=== PATIENT | female | born 1945 | race Caucasian/White ===

== ENCOUNTER → 2018-04-22 15:02 | Outpatient (CLI) | payer MEDICARE, SELFPAY ==
--- NOTE | 2018-04-22 | DI.MG.S_ITS ---
BILATERAL DIGITAL SCREENING MAMMOGRAM 3D/2D WITH CAD: 04/22/2018 CLINICAL: Routine screening. Family history of breast cancer. Comparison is made to exams dated: 02/26/2017 mammogram, 07/20/2015 mammogram, and 12/25/2013 mammogram - [facility]. The tissue of both breasts is heterogeneously dense. This may lower the sensitivity of mammography. Current study was also evaluated with a Computer Aided Detection (CAD) system. There are benign vascular calcifications in both breasts. No significant masses, calcifications, or other findings are seen in either breast. There has been no significant interval change. IMPRESSION: BENIGN There is no mammographic evidence of malignancy. A 1 year screening mammogram is recommended. This exam was interpreted at Station ID: [id number]. NOTE: For mammograms, a report in lay terms will be sent to the patient. Approximately 15% of breast malignancies will not be visualized mammographically. In the management of a palpable breast mass, a negative mammogram must not discourage biopsy of a clinically suspicious lesion. Electronically Signed By: Vipin hardwick/noreen:04/23/2018 03:50:53 letter sent: Normal Exam ACR BI-RADS Category 2: Benign Finding(s) 3342F
== END ==
PROVIDERS: Visit Provider Student in an Organized Health Care Education/Training Program
DX: Z12.31 Encounter for screening mammogram for malignant neoplasm of breast (principal); Z80.3 Family history of malignant neoplasm of breast
CPT/HCPCS: 77063; 77067

== ENCOUNTER 2018-09-01 12:02 | Emergency (ER) | payer MEDICARE, SELFPAY ==
[2018-09-01 12:11] VITALS: BP 158/89; PULSE 63; RESP 16; TEMP 36.6; O2SAT 97
--- NOTE | 2018-09-01 12:19 | DI.RAD.S_ITS ---
PROCEDURE: XR CHEST 1V INDICATIONS: cp TECHNIQUE: One view of the chest was acquired. COMPARISON: None. FINDINGS: Surgical changes and devices: None. Lungs and pleura: No pleural effusions or pneumothorax. Lungs are clear. Mediastinum: Mediastinal contours appear normal. Heart size is enlarged. Bones and chest wall: No suspicious bony lesions. Overlying soft tissues appear unremarkable. IMPRESSION: No acute cardiopulmonary pathology. Dictated by: Ray Damian M.D. on 09/01/2018 at 14:43 Approved by: Ray Damian M.D. on 09/01/2018 at 14:43
[2018-09-01 12:47] LABS: Creatine Kinase 20 U/L (30-135)
[2018-09-01 12:48] LABS: Alanine Aminotransferase 41 IU/L (9-52); Albumin Globulin Ratio 1.4 (1.0-2.8); Alkaline Phosphatase 88 U/L (38-126); Aspartate Aminotransferase 37 IU/L (14-36); BUN Creatinine Ratio 16.7 (6-22); Bilirubin Total 0.3 mg/dL (0.2-1.3); Blood Urea Nitrogen 15 mg/dL (7-17); Calcium 9.3 mg/dL (8.4-10.2); Carbon Dioxide 28 mmol/L (22-32); Chloride 103 mmol/L (98-107); Estimated Glomerular Filt Rate > 60.0 mL/min (>60); Globulin 2.9 g/dL (1.7-4.1); Glucose 100 mg/dL (80-110); HEMOLYSIS < 15 (0-50); Lipase 77 U/L (23-300); Potassium 4.5 mmol/L (3.4-5.1); Sodium 139 mmol/L (137-145); Total Protein 6.9 g/dL (6.3-8.2)
[2018-09-01 12:55] LABS: Add Manual Diff / Slide Review NO; Basophils Percent Auto 0.5 % (0-2); Eosinophils Percent Auto 1.9 % (2-4); Hematocrit 41.3 % (36-46); Hemoglobin 13.7 g/dL (12.0-16.0); Lymphocytes Percent Auto 22.2 % (25-40); Mean Corpuscular HGB Conc 33.2 % (30-36); Mean Corpuscular Hemoglobin 30.8 PG (26-34); Mean Corpuscular Volume 92.7 fL (80-100); Monocytes Percent Auto 8.8 % (3-14); Neutrophils Absolute Auto 5500 /uL (1500-7000); Neutrophils Percent Auto 66.6 % (50-75); Platelet Count 261 X10^3/uL (150-400); Red Blood Cell Count 4.45 X10^6/uL (4.0-5.2); Red Cell Distribution Width 13.9 % (11.6-14.8); White Blood Cell Count 8.2 X10^3/uL (4.5-11.0)
[2018-09-01 13:03] LABS: Troponin I < 0.012 ng/mL (0.01-0.034)
[2018-09-01] MEDS: ASPIRIN 81 MG TAB 324 MG PO (14:00)
[2018-09-01 14:15] VITALS: BP 160/88; PULSE 63; RESP 16; O2SAT 100
[2018-09-01] MEDS: SODIUM CHLORIDE 0.9% 1,000 ML 150 ML IV (14:30)
--- NOTE | 2018-09-01 15:12 | ED.CHESTPAIN ---
HPI - Chest Pain General Chief Complaint: Chest Pain Stated Complaint: LEFT SIDED CHEST PAIN Time Seen by Provider: 09/01/18 14:45 Source: patient and family Mode of arrival: ambulatory Limitations: no limitations History of Present Illness HPI narrative: This is a 72-year-old female comes emergency department complaint of chest pain for the last month. Patient states sort of over the left shoulder anterior chest. Exertion does not seem to worsen it. Movement does not seem to make it particularly worse. Patient has done some upper shoulder exercises recently and she thought this would make it worse and it did not so she came in because she had been contributing the pain to her shoulder. Patient has not had any shortness of breath. She has had dyspnea on exertion. No orthopnea. No swelling in her lower extremities. She has not any fevers, no cold cough or congestion. Patient has not had any long distance travel. She does not have any prior cardiac, pulmonary or emboli history. Patient has a history of normal pressure hydrocephalus and has a OFFICE RENTAL CLERK shunt in place. She states she has not had any complications that drains onto her right side. Patient also had a malignant brain tumor but this was removed and she has not had any further issues. She has not had any rashes or skin changes. No prior trauma or injuries. No car accidents in the last month. Related Data Allergies Allergy/AdvReac Type Severity Reaction Status Date / Time lorazepam [From Ativan] AdvReac Agitated Verified 09/01/18 12:10 Review of Systems Review of Systems All systems reviewed & are unremarkable except as noted in HPI and below Constitutional Denies chills, Reports difficulty sleeping, Denies excessive sweating, Denies fatigue, Denies fever(s), Denies lethargy, Denies night sweats and Denies weakness Cardiovascular Reports chest pain, Reports chest pain at rest, Denies chest pain with activity, Denies diaphoresis, Denies syncope, Denies rapid heart rate, Denies pedal edema, Denies irregular heart rhythm, Denies lightheadedness, Reports radiating jaw, neck or arm pain, Denies palpitations, Denies dyspnea, Denies dyspnea on exertion and Denies orthopnea Respiratory Denies change in phlegm color, Denies chest congestion, Denies cough, Denies hemoptysis, Reports pain on inspiration, Denies pain with cough, Denies dyspnea, Denies dyspnea on exertion and Denies wheezing Gastrointestinal Gastrointestinal: Denies abdominal pain, Denies change in bowel habits, Denies diarrhea, Denies nausea and Denies vomiting Genitourinary Denies urinary frequency, Denies dysuria and Denies urinary urgency Musculoskeletal Reports as per HPI, Denies arthralgias, Denies joint swelling, Denies limited range of motion, Denies numbness, Reports radiating pain into limb, Denies stiffness and Denies tingling Integumentary/Breasts Denies rash Neurologic Denies syncope, Denies numbness, Denies tingling and Denies weakness Endocrine Denies excessive sweating, Denies fatigue and Denies palpitations Allergic/Immunologic Denies wheezing [facility] Medical History Normal pressure hydrocephalus (Chronic) Brain tumor (Resolved) Surgical History S/P OFFICE RENTAL CLERK shunt (Chronic) Social History Smoking Status: Never smoker alcohol intake: current substance use type: does not use Exam Narrative Exam Narrative: GENERAL: Alert and oriented x three, HEENT: Head normocephalic, atraumatic, EOMI, pupils reactive, face symmetric, moist mucous membranes NECK: Supple, full range of motion CARDIOVASCULAR: Regular rate and rhythm without murmurs, rubs or gallops. RESPIRATORY: Breath sounds equal bilaterally, no wheezes rales or rhonchi. ABDOMEN: Soft, nontender. Normoactive bowel sounds all 4 quadrants. No guarding or rebound, rigidity, no mass : No CVA tenderness EXTREMITIES: Normal range of motion, no clubbing or edema. Neurovascularly intact NEUROLOGICAL: Cranial nerves II through XII grossly intact. Moving all extremities SKIN: Warm, dry, no petechiae, no rashes or lesions. Initial Vital Signs Initial Vital Signs: Vital Signs Temperature 97.9 F 09/01/18 12:11 Pulse Rate 63 09/01/18 12:11 Respiratory Rate 16 09/01/18 12:11 Blood Pressure 158/89 H 09/01/18 12:11 Pulse Oximetry 97 09/01/18 12:11 Course Orders Ordered: Discontinued Medications Aspirin (Aspirin Chew) 324 mg PO NOW ONE Stop: 12/31/18 12:20 Last Admin: 09/01/18 14:00 Dose: 324 mg Sodium Chloride (Normal Saline 0.9%) 1,000 mls @ 150 mls/hr IV CONT J LUIS Last Infusion: 09/01/18 15:31 Dose: 150 mls/hr Admin: 09/01/18 14:30 Dose: 150 mls/hr Vital Signs - 8 hr 09/01/18 12:11 09/01/18 14:15 Temperature 97.9 F Pulse Rate 63 63 Respiratory Rate 16 16 Blood Pressure 158/89 H Blood Pressure [Left Arm] 160/88 H Pulse Oximetry 97 100 MDM - Chest Pain Lab Data Attestation: I reviewed the patient's lab results. Result diagrams: 09/01/18 12:20 09/01/18 12:20 Lab Results 09/01/18 09/01/18 Range/Units 12:20 12:20 WBC 8.2 (4.5-11.0) X10^3/uL RBC 4.45 (4.0-5.2) X10^6/uL Hgb 13.7 (12.0-16.0) g/dL Hct 41.3 (36-46) % MCV 92.7 (80-100) fL MCH 30.8 (26-34) PG MCHC 33.2 (30-36) % RDW 13.9 (11.6-14.8) % Plt Count 261 (150-400) X10^3/uL Neut % (Auto) 66.6 (50-75) % Lymph % (Auto) 22.2 L (25-40) % [place] % (Auto) 8.8 (3-14) % Eos % (Auto) 1.9 L (2-4) % Baso % (Auto) 0.5 (0-2) % Neut # (Auto) 5500 (4218-1780) /uL Sodium 139 (137-145) mmol/L Potassium 4.5 (3.4-5.1) mmol/L Chloride 103 (98-107) mmol/L Carbon Dioxide 28 (22-32) mmol/L BUN 15 (7-17) mg/dL Creatinine 0.90 (0.52-1.04) mg/dL Estimated GFR > 60.0 (>60) mL/min BUN/Creatinine Ratio 16.7 (6-22) Glucose 100 (80-110) mg/dL Calcium 9.3 (8.4-10.2) mg/dL Total Bilirubin 0.3 (0.2-1.3) mg/dL AST 37 H (14-36) IU/L ALT 41 (9-52) IU/L Alkaline Phosphatase 88 (38-126) U/L Total Creatine Kinase 20 L (30-135) U/L CK-MB (CK-2) TNP CK-MB (CK-2) Rel Index TNP Troponin I < 0.012 (0.01-0.034) ng/mL Total Protein 6.9 (6.3-8.2) g/dL Albumin 4.0 (3.5-5.0) g/dL Globulin 2.9 (1.7-4.1) g/dL Albumin/Globulin Ratio 1.4 (1.0-2.8) Lipase 77 (23-300) U/L Urine Dip Bedside Urine Glucose Negative Bedside Urine Bilirubin - Negative Bedside Urine Ketone - Negative Urine Specific [place] 1.015 Bedside Urine Occult Blood - Negative Bedside Urine pH 6.0 Bedside Urine Protein - Negative Bedside Urine Urobilinogen - Negative Bedside Urine Nitrite - Negative Bedside Urine Leukocytes - Negative Esterase Imaging Data Chest x-ray: Radiologist's impression: [place] [address] XRay Report Signed Patient: Anne Marie Mcnamara MR#: [id number] : 1945 Acct:[id number] Age/Sex: 72 / F Date of Service: 09/01/18 Loc: ED Accession Number: [id number] Procedure: XR chest 1V Ordering Provider: Zuleima Reynoso D.O. PROCEDURE: XR CHEST 1V INDICATIONS: cp TECHNIQUE: One view of the chest was acquired. COMPARISON: None. FINDINGS: Surgical changes and devices: None. Lungs and pleura: No pleural effusions or pneumothorax. Lungs are clear. Mediastinum: Mediastinal contours appear normal. Heart size is enlarged. Bones and chest wall: No suspicious bony lesions. Overlying soft tissues appear unremarkable. IMPRESSION: No acute cardiopulmonary pathology. Dictated by: Ray Damian M.D. on 09/01/2018 at 14:43 Approved by: Ray Damian M.D. on 09/01/2018 at 14:43 ECG Data Attestation: I personally reviewed and interpreted this ECG as follows: Prior ECG tracings: not available for review Interpretation: Sinus rhythm no ST elevation or depression. Patient is Q-wave in lead 3. No prior EKGs for comparison MDM Narrative Medical decision making narrative: I discussed the patient with findings. We did discuss doing D-dimer versus CT PE protocol for pulmonary embolism although she is not hypoxic, she is not tachycardic, she is 90 hypotension and her symptoms are not really pleuritic in nature. Patient defers at this time. She has had about a month of symptoms I would expect some sort of changes if she was having any significant pulmonary emboli. She does not have any current risk factors. She does not have any current cancer she was retreated remotely for her tumor. We did not find any signs of infection, care coronary artery disease. Or other clear causes. Discussed with patient and plan for follow-up. Discharge Plan Departure Patient Disposition: Home Clinical Impression: Atypical chest pain Discharge Date/Time: 09/01/18 16:01 Interventions: ED Discharge Assessment Last Done: 09/01/18 15:32 Instructions: DI for Atypical Chest Pain Activity Restrictions/Additional Instructions: With your primary care physician in the next week. Call for an appointment tomorrow. You may take Tylenol as needed for pain. General Return Instructions : Return to the Emergency Department for any new or worsening symptoms. Return to the Emergency Department for fevers not controlled by ibuprofen/Tylenol, severe abdominal pain, chest pain, shortness of breath, passing out, persistent vomiting, worrisome rash, or any other new or worsening symptoms. Referrals: Lanny Maguire PA-C [Primary Care Provider] -
[2018-09-01 15:32] VITALS: BP 154/74; PULSE 64; RESP 14; TEMP 36.3; O2SAT 100
--- NOTE | 2018-09-01 15:32 | ED_ITS ---
HPI - Chest Pain General Chief Complaint: Chest Pain Stated Complaint: LEFT SIDED CHEST PAIN Time Seen by Provider: 09/01/18 14:45 Source: patient and family Mode of arrival: ambulatory Limitations: no limitations History of Present Illness HPI narrative: This is a 72-year-old female comes emergency department complaint of chest pain for the last month. Patient states sort of over the left shoulder anterior chest. Exertion does not seem to worsen it. Movement does not seem to make it particularly worse. Patient has done some upper shoulder exercises recently and she thought this would make it worse and it did not so she came in because she had been contributing the pain to her shoulder. Patient has not had any shortness of breath. She has had dyspnea on exertion. No orthopnea. No swelling in her lower extremities. She has not any fevers, no cold cough or congestion. Patient has not had any long distance travel. She does not have any prior cardiac, pulmonary or emboli history. Patient has a history of normal pressure hydrocephalus and has a CAP AND HAT PRODUCTION SUPERVISOR shunt in place. She states she has not had any complications that drains onto her right side. Patient also had a malignant brain tumor but this was removed and she has not had any further issues. She has not had any rashes or skin changes. No prior trauma or injuries. No car accidents in the last month. Related Data Allergies Allergy/AdvReac Type Severity Reaction Status Date / Time lorazepam [From Ativan] AdvReac Agitated Verified 09/01/18 12:10 Review of Systems Review of Systems All systems reviewed & are unremarkable except as noted in HPI and below Constitutional Denies chills, Reports difficulty sleeping, Denies excessive sweating, Denies fatigue, Denies fever(s), Denies lethargy, Denies night sweats and Denies weakness Cardiovascular Reports chest pain, Reports chest pain at rest, Denies chest pain with activity , Denies diaphoresis, Denies syncope, Denies rapid heart rate, Denies pedal edema, Denies irregular heart rhythm, Denies lightheadedness, Reports radiating jaw, neck or arm pain, Denies palpitations, Denies dyspnea, Denies dyspnea on exertion and Denies orthopnea Respiratory Denies change in phlegm color, Denies chest congestion, Denies cough, Denies hemoptysis, Reports pain on inspiration, Denies pain with cough, Denies dyspnea , Denies dyspnea on exertion and Denies wheezing Gastrointestinal Gastrointestinal: Denies abdominal pain, Denies change in bowel habits, Denies diarrhea, Denies nausea and Denies vomiting Genitourinary Denies urinary frequency, Denies dysuria and Denies urinary urgency Musculoskeletal Reports as per HPI, Denies arthralgias, Denies joint swelling, Denies limited range of motion, Denies numbness, Reports radiating pain into limb, Denies stiffness and Denies tingling Integumentary/Breasts Denies rash Neurologic Denies syncope, Denies numbness, Denies tingling and Denies weakness Endocrine Denies excessive sweating, Denies fatigue and Denies palpitations Allergic/Immunologic Denies wheezing [facility] Medical History Normal pressure hydrocephalus (Chronic) Brain tumor (Resolved) Surgical History S/P CAP AND HAT PRODUCTION SUPERVISOR shunt (Chronic) Social History Smoking Status: Never smoker alcohol intake: current substance use type: does not use Exam Narrative Exam Narrative: GENERAL: Alert and oriented x three, HEENT: Head normocephalic, atraumatic, EOMI, pupils reactive, face symmetric, moist mucous membranes NECK: Supple, full range of motion CARDIOVASCULAR: Regular rate and rhythm without murmurs, rubs or gallops. RESPIRATORY: Breath sounds equal bilaterally, no wheezes rales or rhonchi. ABDOMEN: Soft, nontender. Normoactive bowel sounds all 4 quadrants. No guarding or rebound, rigidity, no mass : No CVA tenderness EXTREMITIES: Normal range of motion, no clubbing or edema. Neurovascularly intact NEUROLOGICAL: Cranial nerves II through XII grossly intact. Moving all extremities SKIN: Warm, dry, no petechiae, no rashes or lesions. Initial Vital Signs Initial Vital Signs: Vital Signs Temperature 97.9 F 09/01/18 12:11 Pulse Rate 63 09/01/18 12:11 Respiratory Rate 16 09/01/18 12:11 Blood Pressure 158/89 H 09/01/18 12:11 Pulse Oximetry 97 09/01/18 12:11 Course Orders Ordered: Discontinued Medications Aspirin (Aspirin Chew) 324 mg PO NOW ONE Stop: 12/31/18 12:20 Last Admin: 09/01/18 14:00 Dose: 324 mg Sodium Chloride (Normal Saline 0.9%) 1,000 mls @ 150 mls/hr IV CONT J LUIS Last Infusion: 09/01/18 15:31 Dose: 150 mls/hr Admin: 09/01/18 14:30 Dose: 150 mls/hr Vital Signs - 8 hr 09/01/18 12:11 09/01/18 14:15 Temperature 97.9 F Pulse Rate 63 63 Respiratory Rate 16 16 Blood Pressure 158/89 H Blood Pressure [Left Arm] 160/88 H Pulse Oximetry 97 100 MDM - Chest Pain Lab Data Attestation: I reviewed the patient's lab results. Result diagrams: 09/01/18 12:20 09/01/18 12:20 Lab Results 09/01/18 09/01/18 Range/Units 12:20 12:20 WBC 8.2 (4.5-11.0) X10^3/uL RBC 4.45 (4.0-5.2) X10^6/uL Hgb 13.7 (12.0-16.0) g/dL Hct 41.3 (36-46) % MCV 92.7 (80-100) fL MCH 30.8 (26-34) PG MCHC 33.2 (30-36) % RDW 13.9 (11.6-14.8) % Plt Count 261 (150-400) X10^3/uL Neut % (Auto) 66.6 (50-75) % Lymph % (Auto) 22.2 L (25-40) % [place] % (Auto) 8.8 (3-14) % Eos % (Auto) 1.9 L (2-4) % Baso % (Auto) 0.5 (0-2) % Neut # (Auto) 5500 (0088-1117) /uL Sodium 139 (137-145) mmol/L Potassium 4.5 (3.4-5.1) mmol/L Chloride 103 (98-107) mmol/L Carbon Dioxide 28 (22-32) mmol/L BUN 15 (7-17) mg/dL Creatinine 0.90 (0.52-1.04) mg/dL Estimated GFR > 60.0 (>60) mL/min BUN/Creatinine Ratio 16.7 (6-22) Glucose 100 (80-110) mg/dL Calcium 9.3 (8.4-10.2) mg/dL Total Bilirubin 0.3 (0.2-1.3) mg/dL AST 37 H (14-36) IU/L ALT 41 (9-52) IU/L Alkaline Phosphatase 88 (38-126) U/L Total Creatine Kinase 20 L (30-135) U/L CK-MB (CK-2) TNP CK-MB (CK-2) Rel Index TNP Troponin I < 0.012 (0.01-0.034) ng/mL Total Protein 6.9 (6.3-8.2) g/dL Albumin 4.0 (3.5-5.0) g/dL Globulin 2.9 (1.7-4.1) g/dL Albumin/Globulin Ratio 1.4 (1.0-2.8) Lipase 77 (23-300) U/L Urine Dip Bedside Urine Glucose Negative Bedside Urine Bilirubin - Negative Bedside Urine Ketone - Negative Urine Specific [place] 1.015 Bedside Urine Occult Blood - Negative Bedside Urine pH 6.0 Bedside Urine Protein - Negative Bedside Urine Urobilinogen - Negative Bedside Urine Nitrite - Negative Bedside Urine Leukocytes - Negative Esterase Imaging Data Chest x-ray: Radiologist's impression: [place] [address] XRay Report Signed Patient: Anne Marie Mcnamara MR#: [id number] : 1945 Acct:[id number] Age/Sex: 72 / F Date of Service: 09/01/18 Loc: ED Accession Number: [id number] Procedure: XR chest 1V Ordering Provider: Zuleima Reynoso D.O. PROCEDURE: XR CHEST 1V INDICATIONS: cp TECHNIQUE: One view of the chest was acquired. COMPARISON: None. FINDINGS: Surgical changes and devices: None. Lungs and pleura: No pleural effusions or pneumothorax. Lungs are clear. Mediastinum: Mediastinal contours appear normal. Heart size is enlarged. Bones and chest wall: No suspicious bony lesions. Overlying soft tissues appear unremarkable. IMPRESSION: No acute cardiopulmonary pathology. Dictated by: Ray Damian M.D. on 09/01/2018 at 14:43 Approved by: Ray Damian M.D. on 09/01/2018 at 14:43 ECG Data Attestation: I personally reviewed and interpreted this ECG as follows: Prior ECG tracings: not available for review Interpretation: Sinus rhythm no ST elevation or depression. Patient is Q-wave in lead 3. No prior EKGs for comparison MDM Narrative Medical decision making narrative: I discussed the patient with findings. We did discuss doing D-dimer versus CT PE protocol for pulmonary embolism although she is not hypoxic, she is not tachycardic, she is 90 hypotension and her symptoms are not really pleuritic in nature. Patient defers at this time. She has had about a month of symptoms I would expect some sort of changes if she was having any significant pulmonary emboli. She does not have any current risk factors. She does not have any current cancer she was retreated remotely for her tumor. We did not find any signs of infection, care coronary artery disease. Or other clear causes. Discussed with patient and plan for follow-up. Discharge Plan Departure Patient Disposition: Home Clinical Impression: Atypical chest pain Discharge Date/Time: 09/01/18 16:01 Interventions: ED Discharge Assessment Last Done: 09/01/18 15:32 Instructions: DI for Atypical Chest Pain Activity Restrictions/Additional Instructions: With your primary care physician in the next week. Call for an appointment tomorrow. You may take Tylenol as needed for pain. General Return Instructions : Return to the Emergency Department for any new or worsening symptoms. Return to the Emergency Department for fevers not controlled by ibuprofen/ Tylenol, severe abdominal pain, chest pain, shortness of breath, passing out, persistent vomiting, worrisome rash, or any other new or worsening symptoms. Referrals: Lanny Maguire PA-C [Primary Care Provider] -
== END 2018-09-01 16:01 | disposition home or self-care (01) ==
PROVIDERS: Emergency Provider Emergency Medicine; PCP Student in an Organized Health Care Education/Training Program
DX: R07.89 Other chest pain (principal)
CPT/HCPCS: 36415; 71045; 80053; 81003; 82550; 83690; 84484; 85025; 93005; 96360; 99283; 99285

== ENCOUNTER → 2018-11-05 13:42 | Outpatient (CLI) | payer MEDICARE, SELFPAY | PROVIDERS: PCP Student in an Organized Health Care Education/Training Program; Visit Provider Student in an Organized Health Care Education/Training Program | DX: M81.0 Age-related osteoporosis without current pathological fracture (principal); Z78.0 Asymptomatic menopausal state; Z82.62 Family history of osteoporosis | CPT/HCPCS: 77080 ==

== ENCOUNTER → 2020-04-12 09:01 | Outpatient (CLI) | payer MEDICARE, SELFPAY ==
--- NOTE | 2020-04-12 | DI.RAD.S_ITS ---
PROCEDURE: XR SKULL<4V INDICATIONS: Hydrocephalus, unspecified, shunt series TECHNIQUE: 1 view(s) of the skull acquired. COMPARISON: [facility], CR, XR ABDOMEN 1V, 04/12/2020, 8:17. [facility], CR, XR CHEST 1V, 04/12/2020, 8:17. FINDINGS: Bones: No fractures. No suspicious bony lesions. Visualized sinuses appear clear. Soft tissues: No soft tissue calcifications. No suspicious soft tissue densities. HOSPITAL SUPERVISOR shunt projects over the right calvarium with shunt catheter projecting over the right neck. Visualized HOSPITAL SUPERVISOR shunt is intact. IMPRESSION: Visualized portion of the HOSPITAL SUPERVISOR shunt is intact. Dictated by: Joseline Crespo MD, PhD on 04/12/2020 at 17:38 Approved by: Joseline Crespo MD, PhD on 04/12/2020 at 17:40
--- NOTE | 2020-04-12 | DI.CT.S_ITS ---
PROCEDURE: CT HEAD/BRAIN WO CON INDICATIONS: Hydrocephalus, unspecified TECHNIQUE: Noncontrast 4.5 mm thick angled axial sections acquired from the foramen magnum to the vertex, with coronal and sagittal reformats. For radiation dose reduction, the following was used: automated exposure control, adjustment of mA and/or kV according to patient size. COMPARISON: [facility], RG, CT HEAD W/O CONTRAST, 03/01/2006, 0:04. [facility], MR, BRAIN WITHOUT CONTRAST, 03/07/2011, 8:59. [facility], MR, BRAIN WITH CONTRAST, 03/07/2011, 16:44. FINDINGS: Image quality: Excellent. CSF spaces: A right parietal approach ventriculostomy catheter is seen, with the tip crossing the midline, with the tip within the left lateral ventricle. Basal cisterns are patent. No extra-axial fluid collections. The ventricles demonstrate stable prominence. Brain: The previously seen mass adjacent to the right poonam is no longer seen. No intracranial bleeds or masses. There is cerebral volume loss for age, with resultant ventricular and sulcal prominence. There are periventricular and deep white matter chronic small vessel ischemic changes. There is intracranial internal carotid artery atherosclerosis. Skull and face: Left-sided craniotomy changes are seen. Calvarium and visualized facial bones appear intact, without suspicious lesions. Sinuses: Visualized sinuses and mastoids are clear. IMPRESSION: Prior postoperative change, with the previously seen mass no longer seen. A right parietal approach shunt catheter is seen, with the tip within the left lateral ventricle. There is stable prominence of the lateral ventricles, without ila hydrocephalus. Dictated by: Orlando March M.D. on 04/12/2020 at 8:58 Approved by: Orlando March M.D. on 04/12/2020 at 9:02
--- NOTE | 2020-04-12 | DI.RAD.S_ITS ---
PROCEDURE: XR ABDOMEN 1V INDICATIONS: Hydrocephalus, unspecified, shunt series TECHNIQUE: One view of the abdomen acquired. COMPARISON: [facility], CR, XR CHEST 1V, 04/12/2020, 8:17. [facility], CR, XR CHEST 1V, 09/01/2018, 14:44. FINDINGS: Surgical changes and devices: HORSE SHOW MANAGER shunt catheter enters the peritoneal cavity in the upper midline abdomen and courses to the right lower quadrant with the tip terminating in the left lower quadrant. No shunt discontinuity seen. Bowel: Scattered small bowel and colonic gas. Minimally prominent stool in the right colon. Soft tissues: No suspicious abdominal calcifications. Visualized solid organ contours appear normal in size. Bones: No suspicious bony lesions. IMPRESSION: HORSE SHOW MANAGER shunt catheter appears intact. Tip terminates in the left lower quadrant. Dictated by: Chay Barakat M.D. on 04/12/2020 at 11:23 Approved by: Chay Barakat M.D. on 04/12/2020 at 11:25
--- NOTE | 2020-04-12 | DI.RAD.S_ITS ---
PROCEDURE: XR CHEST 1V INDICATIONS: Hydrocephalus, unspecified, shunt series TECHNIQUE: One view of the chest was acquired. COMPARISON: [facility], CR, XR ABDOMEN 1V, 04/12/2020, 8:17. [facility], CT, CT HEAD/BRAIN WO CON, 04/12/2020, 9:29. [facility], CR, XR CHEST 1V, 09/01/2018, 14:44. FINDINGS: Surgical changes and devices: Shunt catheter projects over the chest, unchanged. Lungs and pleura: Lungs are clear. No pleural effusions or pneumothorax. Mediastinum: Mediastinal contours appear normal. Heart size is normal. Bones and chest wall: No suspicious bony lesions. Overlying soft tissues appear unremarkable. IMPRESSION: No acute cardiopulmonary abnormality. Dictated by: Chay Barakat M.D. on 04/12/2020 at 11:21 Approved by: Chay Barakat M.D. on 04/12/2020 at 11:23
== END ==
PROVIDERS: PCP Student in an Organized Health Care Education/Training Program; Referring Provider Student in an Organized Health Care Education/Training Program; Visit Provider Neurological Surgery
DX: G91.9 Hydrocephalus, unspecified (principal); R42 Dizziness and giddiness; R41.0 Disorientation, unspecified; Z98.2 Presence of cerebrospinal fluid drainage device
CPT/HCPCS: 70250; 70450; 71045; 74018

== ENCOUNTER → 2021-02-28 15:19 | Outpatient (CLI) | payer MEDICARE, SELFPAY | PROVIDERS: PCP Student in an Organized Health Care Education/Training Program; Referring Provider Student in an Organized Health Care Education/Training Program; Visit Provider Student in an Organized Health Care Education/Training Program | DX: M81.0 Age-related osteoporosis without current pathological fracture (principal); Z78.0 Asymptomatic menopausal state; Z82.62 Family history of osteoporosis | CPT/HCPCS: 77080 ==

== ENCOUNTER → 2022-12-27 | Outpatient (CLI) | payer OTHER, SELFPAY ==
--- NOTE | 2022-12-27 10:39 | DI.DEXA.S_ITS ---
Bone Density Report Name: RAHUL BARNES Age: 77 Sex: Female Ethnicity: White Date of : 1945 Indication: postmenopausal osteoporosis; monitoring treatment; Referring Provider: AGAPITO TEE Study: Bone densitometry was performed. Exam Date: December 27, 2022 Accession number: [id number] Bone Density: Region BMD T-score Z-score Classification AP Spine(L1, L2, L3) 0.690 -3.0 -0.4 Osteoporosis Femoral Neck (Left) 0.635 -1.9 0.3 Osteopenia Total Hip (Left) 0.780 -1.3 0.7 Osteopenia Femoral Neck (Right) 0.639 -1.9 0.4 Osteopenia Total Hip (Right) 0.820 -1.0 1.0 Normal Total Hip Mean 0.800 -1.2 0.9 Osteopenia World Health Organization criteria for BMD impression classify patients as: Normal (T-score at or above -1.0), Osteopenia (T-score between -1.0 and -2.5), or Osteoporosis (T-score at or below -2.5). 10-year Fracture Risk: FRAX not reported because: Some T-score for Spine Total or Hip Total or Femoral Neck at or below -2.5 Treated for osteoporosis Previous Exams: -- Region Exam Age BMD T-score BMD Change BMD Change Date g/cm2 vs Baseline vs Previous -- AP Spine (L1-L3) 12/27/2022 77 0.690 -3.0 -0.033 (-4.6%)# -0.033 (-4.6%)# 02/28/2021 75 0.723 -2.7 Total Hip(Left) 12/27/2022 77 0.780 -1.3 -0.026 (-3.2%)# -0.026 (-3.2%)# 02/28/2021 75 0.806 -1.1 Total Hip(Right) 12/27/2022 77 0.820 -1.0 0.050 (6.6%)# 0.050 (6.6%)# 02/28/2021 75 0.770 -1.4 -- *Denotes significance at 95% confidence level, LSC for AP Spine = 0.022 g/cm2, LSC for Total Hip = 0.027 g/cm2 # Denotes dissimilar scan types or analysis methods Impression: The patient has osteoporosis, based on the Total Spine T-score. No significant bone loss was observed. Discussion: PATIENT UNDER TREATMENT WITH NO SIGNIFICANT BMD LOSS SINCE LAST EXAM. In an untreated patient, BMD typically declines with age. A lack of decline or gain is usually a sign that treatment is efficacious and fracture risk is reduced. It is important to ask patients whether they are taking their medications and to encourage continued and appropriate compliance with their osteoporosis therapies to reduce fracture risk. It is also important to review their risk factors and encourage appropriate calcium and vitamin D intakes, exercise, fall prevention and other lifestyle measures. Follow-Up: Consider a repeat BMD and Vertebral Fracture Assessment (VFA) exam in 2 years or sooner if medically necessary, to reassess this patient's status. Reported by: KRISTY TAY MD on 12/27/2022 10:51:00 AM.
== END ==
LOC: RAD 10:20
PROVIDERS: PCP Student in an Organized Health Care Education/Training Program; Referring Provider Student in an Organized Health Care Education/Training Program; Visit Provider Student in an Organized Health Care Education/Training Program
DX: M81.0 Age-related osteoporosis without current pathological fracture (principal); Z78.0 Asymptomatic menopausal state; Z79.83 Long term (current) use of bisphosphonates; Z92.23 Personal history of estrogen therapy
CPT/HCPCS: 77080

== ENCOUNTER 2023-01-19 13:26 | Emergency (ER) | payer OTHER, SELFPAY ==
--- NOTE | 2023-01-19 13:30 | ED_ITS ---
HPI - General Adult General Chief complaint: Upper Respiratory Symptoms Stated complaint: leisions in mouth/lingering cold Time Seen by Provider: 01/19/23 13:30 History of Present Illness HPI narrative: 77-year-old female nonsmoker without any chronic medical history presents with her in the chief complaint of a painful lesion on the underside of her tongue. She states that she is been having upper respiratory complaints including nasal congestion, runny nose and some hacking cough for a week or 2. She denies any sputum production. She is had no fever or chills and denies nausea, vomiting or diarrhea. She started developing a painful lesion on the underside of her tongue and then a day or 2 later went to the walk-in clinic and was started on Keflex for the treatment of ongoing upper respiratory symptoms. She states maybe her upper respiratory symptoms are improving Related Data Home Medications Medication Instructions Recorded Confirmed alendronate [Fosamax] PO 03/23/19 01/17/23 cholecalciferol (vitamin D3) PO 03/23/19 01/17/23 multivitamin,cf-tvuj-hcalnnyk 1 tab PO DAILY 03/23/19 01/17/23 (Complete Multivitamin tablet) omega-3 fatty acids 1,000 mg 1,000 mg PO DAILY 03/23/19 01/17/23 capsule (Fish Oil Concentrate) atorvastatin PO 01/03/21 01/17/23 Previous Rx's Medication Instructions Recorded cephalexin 500 mg capsule 500 mg PO Q8H 7 days #21 caps 01/17/23 Allergies Allergy/AdvReac Type Severity Reaction Status Date / Time lorazepam [From Ativan] AdvReac Agitated Verified 01/17/23 12:57 Review of Systems Review of Systems Narrative: GENERAL: Denies chills, fatigue, malaise, fever, sweats. HEENT: see HPI RESPIRATORY: see HPI CARDIOVASCULAR: Denies chest pain, palpitations, orthopnea, edema, GASTROINTESTINAL: Denies nausea, vomiting, abdominal pain, diarrhea, constipation, melena. : Denies dysuria, frequency, incontinence, hematuria, urinary retention. MUSCULOSKELETAL: denies weakness, joint pain, or bony pain SKIN: Denies rash, skin lesions, or other NEUROLOGIC: Denies weakness, headache, numbness, change in speech, confusion, seizures, incoordination. PSYCHIATRIC: No concerning psychosocial issues. 12 point review of systems is negative except for those stated above Patient History Medical History Brain tumor Normal pressure hydrocephalus Strain of left knee Surgical History S/P [employer] WORKER shunt Social History Smoking Status: Never smoker alcohol intake: current substance use type: does not use Smoking Status: Never smoker alcohol intake frequency: 0-2 drinks per day Substance Use Type: does not use Exam Narrative Exam Narrative: GENERAL: [77] year old patient appears stated age. Well-developed patient, in mild distress. HEAD: Atraumatic. Normocephalic. EYES: Pupils equal round and reactive. Extraocular motions intact. No scleral icterus. No injection or drainage. ENT: clear nasal drainage bilaterally, moist mucous membranes, painful, pale lesion on underside of tongue without drainage, unable to scrape off any exudate, no bleeding. No other mucosal involvement, no sloughing. NECK: Trachea midline. Non tender CARDIOVASCULAR: Regular rate and rhythm without murmurs, gallops, or rubs. RESPIRATORY: Clear to auscultation. Breath sounds equal bilaterally. No wheezes, rales, or rhonchi. GASTROINTESTINAL: Abdomen soft, non-tender, nondistended. EXTREMITIES: No edema or joint tenderness. BACK: Nontender without deformity or crepitance. No flank tenderness. NEURO: AOx3. SKIN: No rash or erythema of visible areas Initial Vital Signs Initial Vital Signs: Vital Signs Pulse Rate 97 H 01/19/23 13:37 Blood Pressure 165/92 H 01/19/23 13:37 Pulse Oximetry 96 01/19/23 13:37 Course Orders Ordered: ED Orders 01/19/23 13:40 Respiratory Panel (Film Array) Stat Consultations Consultation #1: discussed with Dr. Willis (ENT) reviewed case and image of tongue. Recommends daily photos, symptomatic treatment, close follow up. Vital Signs Vital signs: Vital Signs - 8 hr 01/19/23 13:39 01/19/23 13:37 Temperature 98.6 F Pulse Rate 89 97 H Respiratory Rate 17 Blood Pressure 165/92 H 165/92 H Pulse Oximetry 96 96 Oxygen Delivery Method Room Air Medical Decision Making Lab Data Labs: Lab Results 01/19/23 Range/Units 13:40 Chlamy pneumoniae PCR Not detected (Not Detect) Adenovirus (PCR) Not detected (Not Detect) B. pertussis DNA (PCR) Not detected (Not Detecte) B.parapertussis DNA PCR Not detected (Not Detecte) Coronavirus OC43 (PCR) Not detected (Not Detect) Coronavirus HKU1 (PCR) Not detected (Not Detect) Coronavirus 229E (PCR) Not detected (Not Detect) SARS-CoV-2 (PCR) Not detected (Not Detecte) Coronavirus NL63 (PCR) Not detected (Not Detect) Human Metapneumovir PCR Not detected (Not Detect) Influenza Type A (PCR) Not detected (Not Detect) Influenza Type B (PCR) Not detected (Not Detect) M. pneumoniae (PCR) Not detected (Not Detect) Parainfluenza 1 (PCR) Not detected (Not Detect) Parainfluenza 2 (PCR) Not detected (Not Detect) Parainfluenza 3 (PCR) Not detected (Not Detect) Parainfluenza 4 (PCR) Not detected (Not Detect) RSV (PCR) Not detected (Not Detect) Entero/Rhino (PCR) Not detected (Not Detect) MDM Narrative Medical decision making narrative: [77] year old patient presents with Painful lesion under tongue for the past few days. Multiple etiologies for patient's symptoms considered including, but not limited to: [viral ulcer vs. oral cancer vs. SJS/TENS vs. thrush vs. other] Prior Charts reviewed in our EMR Primary Historian: patient Labs reviewed and interpreted by myself: respiratory panel notes Imaging reviewed: chest x-ray clear without infiltrate Consultations: discussed with on-call ENT, see details above Patient's symptoms improved over duration of stay with above-stated therapies. Findings and discharge diagnosis discussed with patient/family followed by verbalization of understanding Return precautions discussed with patient/family whom verbalize understanding of diagnosis and plan Discharge Plan Departure Patient Disposition: Home Clinical Impression: Lesion of mouth Instructions: Common Cold, DI for Mouth Lesions Activity Restrictions/Additional Instructions: *You have been diagnosed with [ painful oral lesions and upper respiratory complaints] *What to do: *Please continue to take your regular medications as directed. [x ] New medication written as a paper prescription (Magic Mouthwash) *Please follow up with your primary care provider in 2-3 days, call for an appointment. Let them know you were seen in the Emergency Department and that we ask that you be seen in follow up. We will electronically transmit a record of today's note if your PCP is in our system * as we discussed we will learn much with regards to the lesion on your tongue after use of the prescription listed above. Per my discussion with on-call Ear Nose and Throat, Dr. Willis, he recommends taking pictures daily to track the progress and follow up. I have included the contact information for his office, please call Saturday, let them know you were seen in the emergency department and we would like you seen in follow-up. I will electronically transmitted a copy of today's note as well *Return to Emergency Department if you should have any new, worsening or concer eloy symptoms, such as [fever greater than 101 F, shaking chills, worsening pain, persistent vomiting or other bothersome symptoms] Prescriptions: No Action atorvastatin PO alendronate PO Complete Multivitamin tablet 1 tab PO DAILY omega-3 fatty acids [Fish Oil Concentrate] 1,000 mg capsule 1,000 mg PO DAILY cholecalciferol (vitamin D3) PO cephalexin 500 mg capsule 500 mg PO Q8H 7 Days Qty: 21 0RF Referrals: Lanny Maguire PA-C [Primary Care Provider] - Terrell Willis MD [Physician] - Stand Alone Forms: Patient Portal/API
[2023-01-19 13:37] VITALS: BP 165/92; PULSE 97; O2SAT 96
[2023-01-19 13:39] VITALS: BP 165/92; PULSE 89; RESP 17; TEMP 37; O2SAT 96; BMI 24.1
--- NOTE | 2023-01-19 14:08 | DI.RAD.S_ITS ---
PROCEDURE: XR CHEST 2V INDICATIONS: cough, cold TECHNIQUE: 2 views of the chest were acquired. COMPARISON: [facility], CR, XR CHEST 1V, 04/12/2020, 8:17. FINDINGS: Surgical changes and devices: None. Lungs and pleura: Lungs are clear. No pleural effusions or pneumothorax. Mediastinum: Mediastinal contours are normal. Heart size is normal. Bones and chest wall: No suspicious bony abnormalities. Soft tissues appear unremarkable. IMPRESSION: No acute process. Dictated by: Alexy Aguayo M.D. on 01/19/2023 at 13:22 Approved by: Alexy Aguayo M.D. on 01/19/2023 at 13:22
[2023-01-19 14:45] VITALS: BP 144/93; PULSE 92; RESP 16; O2SAT 97
[2023-01-19 14:49] LABS: Adenovirus Not Detected (Not Detect); B. parapertussis Not Detected (Not Detecte); Bordetella pertussis Not Detected (Not Detecte); Chlamydophila pneumoniae Not Detected (Not Detect); Coronavirus 229E Not Detected (Not Detect); Coronavirus HKU1 Not Detected (Not Detect); Coronavirus NL 63 Not Detected (Not Detect); Coronavirus OC43 Not Detected (Not Detect); Human Metapneumovirus Not Detected (Not Detect); Human Rhinovirus/Enterovirus Not Detected (Not Detect); Influenza A Not Detected (Not Detect); Influenza B Not Detected (Not Detect); Mycoplasma pneumoniae Not Detected (Not Detect); Parainfluenza Virus 1 Not Detected (Not Detect); Parainfluenza Virus 2 Not Detected (Not Detect); Parainfluenza Virus 3 Not Detected (Not Detect); Parainfluenza Virus 4 Not Detected (Not Detect); Respiratory Syncytial Virus Not Detected (Not Detect); SARS- CoV-2 Not Detected (Not Detecte)
== END 2023-01-19 14:49 | disposition home or self-care (01) ==
PROVIDERS: Emergency Provider Emergency Medicine; PCP Student in an Organized Health Care Education/Training Program
DX: K13.70 Unspecified lesions of oral mucosa (principal); R05.9 Cough, unspecified; Z20.822 Contact with and (suspected) exposure to COVID-19
CPT/HCPCS: 71046; 87633; 99282; 99283

== ENCOUNTER → 2023-02-19 08:46 | Outpatient (CLI) | payer OTHER, SELFPAY ==
--- NOTE | 2023-02-19 | DI.CT.S_ITS ---
PROCEDURE: CT HEAD/BRAIN WO CON INDICATIONS: Hydrocephalus in diseases classified elsewhere TECHNIQUE: Noncontrast 4.5 mm thick angled axial sections acquired from the foramen magnum to the vertex, with coronal and sagittal reformats. For radiation dose reduction, the following was used: automated exposure control, adjustment of mA and/or kV according to patient size. COMPARISON: [facility], MR, BRAIN WITHOUT CONTRAST, 03/07/2011, 8:59. [facility], MR, BRAIN WITH CONTRAST, 03/07/2011, 16:44. [facility], CT, CT HEAD/BRAIN WO CON, 04/12/2020, 9:29. FINDINGS: Image quality: Excellent. CSF spaces: There is a right parietal approach ventriculostomy catheter, with the tip crossing the midline and seen within the left lateral ventricle. The lateral ventricles are prominent in size, yet stable compared to 2019. Basal cisterns are patent. No extra-axial fluid collections. Brain: No intracranial bleeds or masses. There is cerebral volume loss for age, with resultant ventricular and sulcal prominence. There are periventricular and deep white matter chronic small vessel ischemic changes. There is intracranial internal carotid artery atherosclerosis. Skull and face: Right-sided craniotomy change can be seen. Postoperative clips can be seen adjacent to the right skull base. Calvarium and visualized facial bones appear intact, without suspicious lesions. Sinuses: Visualized sinuses and mastoids are clear. IMPRESSION: Stable prominence of the lateral ventricles, with a stable right parietal approach ventriculostomy catheter. Postoperative change can be seen on the right, with right-sided craniotomy change and postoperative clips at the right skull base. Dictated by: Orlando March M.D. on 02/19/2023 at 9:55 Approved by: Orlando March M.D. on 02/19/2023 at 9:57
== END ==
PROVIDERS: PCP Student in an Organized Health Care Education/Training Program; Referring Provider Neurological Surgery; Visit Provider Neurological Surgery
DX: I65.29 Occlusion and stenosis of unspecified carotid artery (principal); G91.4 Hydrocephalus in diseases classified elsewhere; Z98.2 Presence of cerebrospinal fluid drainage device
CPT/HCPCS: 70450

== ENCOUNTER → 2023-03-14 16:00 | Outpatient (CLI) | payer OTHER, SELFPAY ==
[2023-03-14 16:48] LABS: Influenza A - CEPHEID Flu A NEGATIVE (NEGATIVE); Influenza B - CEPHEID Flu B NEGATIVE (NEGATIVE); Respiratory Syncytial Virus Negative (Negative)
[2023-03-14 17:24] LABS: COVID-19 CEPHEID 4-PLEX PCR Negative (Negative)
== END ==
PROVIDERS: PCP Student in an Organized Health Care Education/Training Program; Visit Provider Physician Assistant
DX: R52 Pain, unspecified (principal); R53.83 Other fatigue; R41.0 Disorientation, unspecified
CPT/HCPCS: 0241U; 87086

== ENCOUNTER → 2023-10-11 17:53 | Outpatient (CLI) | payer OTHER, SELFPAY ==
[2023-10-11 19:03] LABS: Influenza A - CEPHEID Flu A NEGATIVE (NEGATIVE); Influenza B - CEPHEID Flu B NEGATIVE (NEGATIVE); Respiratory Syncytial Virus Negative (Negative)
[2023-10-11 19:04] LABS: COVID-19 CEPHEID 4-PLEX PCR Negative (Negative)
== END ==
PROVIDERS: PCP Student in an Organized Health Care Education/Training Program; Visit Provider Nurse Practitioner Family
DX: Z20.828 Contact with and (suspected) exposure to other viral communicable diseases (principal)
CPT/HCPCS: 0241U

== ENCOUNTER → 2023-11-07 15:29 | Outpatient (CLI) | payer OTHER, SELFPAY ==
--- NOTE | 2023-11-07 | DI.US.S_ITS ---
PROCEDURE: US SOFT TISSUE HEAD AND NECK INDICATIONS: LEFT SUBMANDIBULAR LUMP TECHNIQUE: Real-time scanning was performed of the neck region of interest, with image documentation. COMPARISON: None. FINDINGS: The area of concern demonstrates a lymph node measuring 1.6 x 0.8 x 0.7 cm. Fatty hilum is partially obscured. IMPRESSION: Area of concern corresponds to a lymph node not considered pathologically enlarged. However, there is slight loss of fatty hilum. This is overall nonspecific. Interval follow-up may be obtained. Dictated by: Lizzie Carrillo M.D. on 11/07/2023 at 19:55 Approved by: Lizzie Carrillo M.D. on 11/07/2023 at 19:56
== END ==
PROVIDERS: PCP Student in an Organized Health Care Education/Training Program; Referring Provider Physician Assistant; Visit Provider Physician Assistant
DX: R22.1 Localized swelling, mass and lump, neck (principal)
CPT/HCPCS: 76536

== ENCOUNTER → 2024-10-27 09:42 | Outpatient (CLI) | payer MEDICARE, SELFPAY ==
--- NOTE | 2024-10-27 09:43 | DI.CT.S_ITS ---
PROCEDURE: CT HEAD/BRAIN WO CON INDICATIONS: MEMORY LOSS,REMOTE HISTORY OF SHUNT TECHNIQUE: Noncontrast 4.5 mm thick angled axial sections acquired from the foramen magnum to the vertex, with coronal and sagittal reformats. For radiation dose reduction, the following was used: automated exposure control, adjustment of mA and/or kV according to patient size. COMPARISON: [facility], CT, CT HEAD/BRAIN WO CON, 04/12/2020, 9:29. [facility], CT, CT HEAD/BRAIN WO CON, 02/19/2023, 8:55. FINDINGS: Image quality: Diagnostic. CSF spaces: There is a right parietal approach ventriculostomy catheter seen, which crosses the midline and seen within the left lateral ventricle. The position is unchanged compared to the prior CT dated 02/19/2023. The lateral ventricles are mildly prominent in size, yet not significantly changed in size compared to the prior CT examinations. Basal cisterns are patent. No extra-axial fluid collections. Brain: No intracranial bleeds or masses. There is cerebral volume loss for age, with resultant ventricular and sulcal prominence. There are periventricular and deep white matter chronic small vessel ischemic changes. There is intracranial internal carotid artery atherosclerosis. Skull and face: Right-sided craniotomy change is seen. Calvarium and visualized facial bones appear intact, without suspicious lesions. Sinuses: Visualized sinuses and mastoids are clear. IMPRESSION: Stable intracranial study demonstrating a right parietal approach ventriculostomy catheter, symmetrically prominent ventricles, and prior right craniotomy change. Dictated by: Orlando March M.D. on 10/27/2024 at 11:40 Approved by: Orlando March M.D. on 10/27/2024 at 11:42
== END ==
PROVIDERS: PCP Student in an Organized Health Care Education/Training Program; Referring Provider Family Medicine; Visit Provider Family Medicine
DX: G31.84 Mild cognitive impairment of uncertain or unknown etiology; I65.29 Occlusion and stenosis of unspecified carotid artery; Z98.2 Presence of cerebrospinal fluid drainage device
CPT/HCPCS: 70450

== ENCOUNTER → 2024-11-05 14:27 | Outpatient (CLI) | payer MEDICARE, SELFPAY ==
[2024-11-05 15:58] LABS: C-Reactive Protein Quant 0.7 mg/dL (<1.0); Phosphorous 3.2 mg/dL (2.8-4.1)
[2024-11-05 16:03] LABS: Rheumatoid Factor < 8.6 IU/mL (<12.0)
[2024-11-05 16:04] LABS: Erythrocyte Sedimentation Rate 7 MM/HR (0-20)
[2024-11-05 16:46] LABS: Vitamin B12 944 pg/mL (239-931)
[2024-11-07 10:36] LABS: CCP Antibodies IgG/IgA 6 units (0-19)
[2024-11-08 23:07] LABS: Zinc 56 ug/dL (44-115)
== END ==
PROVIDERS: PCP Family Medicine; Referring Provider Family Medicine; Visit Provider Family Medicine
DX: R53.83 Other fatigue (principal); G31.84 Mild cognitive impairment of uncertain or unknown etiology; G91.4 Hydrocephalus in diseases classified elsewhere; H53.2 Diplopia
CPT/HCPCS: 36415; 82525; 82607; 84100; 84207; 84425; 84630; 85651; 86038; 86140; 86200; 86430

== ENCOUNTER → 2024-11-10 11:51 | Outpatient (CLI) | payer MEDICARE, SELFPAY ==
--- NOTE | 2024-11-10 11:53 | DI.MRI.S_ITS ---
PROCEDURE: MR HEAD/BRAIN WO CON INDICATIONS: MS, Diplopia TECHNIQUE: Non-contrast axial T1 spin echo, axial T2 fast spin echo, sagittal and axial FLAIR, coronal T2 fast spin echo, axial gradient echo, axial diffusion and ADC through the brain. COMPARISON: [facility], CT, CT HEAD/BRAIN WO CON, 10/27/2024, 10:17. FINDINGS: Image quality: Excellent. CSF spaces: Ventricles appear symmetric in size and shape, unchanged compared to prior exam. Basal cisterns are patent. No extra-axial fluid collections. [employer]ING TECHNICIAN shunt from a posterior right parietal occipital approach terminating in the left horn is again noted. Brain: No intracranial bleeds or mass effects. There is cerebral volume loss for age. Scattered periventricular and subcortical white matter changes are present. Brainstem appears normal. Diffusion-weighted images show no acute infarct. No chronic ischemic insults. Normal intravascular flow voids are present. Skull and face: Calvarial bone marrow is normal in signal. Orbits are normal. Sinuses: Sinuses and mastoids are clear. IMPRESSION: No acute intracranial process. Scattered areas of periventricular and subcortical white matter hyperintensities are present suggestive of chronic microvascular ischemia. Underlying areas of superimposed demyelinating disease cannot be definitively excluded based on appearance. Dictated by: Lizzie Carrillo M.D. on 11/10/2024 at 16:47 Approved by: Lizzie Carrillo M.D. on 11/10/2024 at 16:51
--- NOTE | 2024-11-10 11:53 | DI.MRI.S_ITS ---
PROCEDURE: MR CERVICAL SPINE WO CON INDICATIONS: MS, Diplopia TECHNIQUE: Noncontrast sagittal T1 spin echo and T2 fast spin echo, sagittal STIR, foraminal oblique sagittal T2 fast spin echo, and axial gradient echo or T2 fast spin echo through the cervical spine. COMPARISON: None. FINDINGS: Image quality: Excellent. Alignment and Curvature: There is normal bony alignment. Bone Marrow: Marrow demonstrates normal overall signal. Spinal Cord: Visualized spinal cord has normal size and signal. No cerebellar tonsillar herniation. Paraspinous Soft Tissues: No paravertebral masses. Prevertebral soft tissues are normal in thickness. Discs: Multilevel moderate to severe disc desiccation most prominent at C5-6. C2-C3: No disc bulge, spinal stenosis or foraminal narrowing. C3-C4: Normal appearance. C4-C5: Disc bulge without gross spinal stenosis. Moderate right foraminal narrowing with uncovertebral hypertrophy. C5-C6: Minimal disc without stenosis. Moderate bilateral foraminal narrowing uncovertebral hypertrophy. C6-C7: Minimal disc without stenosis. Right foraminal narrowing with uncovertebral hypertrophy. C7-T1: No disc, spinal stenosis or foraminal narrowing. IMPRESSION: No areas of abnormal signal within the cord. Multilevel degenerative changes with prominent foraminal narrowing at C4-5 and C5-6. Dictated by: Lizzie Carrillo M.D. on 11/10/2024 at 16:51 Approved by: Lizzie Carrillo M.D. on 11/10/2024 at 16:53
== END ==
PROVIDERS: PCP Family Medicine; Referring Provider Family Medicine; Visit Provider Family Medicine
DX: G31.84 Mild cognitive impairment of uncertain or unknown etiology (principal); G91.4 Hydrocephalus in diseases classified elsewhere; H53.2 Diplopia; M48.02 Spinal stenosis, cervical region; Z98.2 Presence of cerebrospinal fluid drainage device
CPT/HCPCS: 70551; 72141

== ENCOUNTER → 2025-01-01 13:33 | Outpatient (CLI) | payer MEDICARE, SELFPAY ==
--- NOTE | 2025-01-01 13:36 | DI.RAD.S_ITS ---
PROCEDURE: XR HIP LT 2V INDICATIONS: Pain in left hip TECHNIQUE: 2 view(s) of the hip acquired. COMPARISON: None. FINDINGS: Bones: No evidence of fracture or dislocation. The joint spaces are normal in appearance. Shunt catheter tubing is noted coursing within the lower abdomen and terminating within the pelvis. Soft tissues: No suspicious soft tissue densities. IMPRESSION: No evidence of acute osseous abnormality. Dictated by: Bhavin France M.D. on 01/03/2025 at 0:42 Approved by: Bhavin France M.D. on 01/03/2025 at 0:43
== END ==
PROVIDERS: PCP Family Medicine; Referring Provider Nurse Practitioner Family; Visit Provider Nurse Practitioner Family
DX: M25.552 Pain in left hip (principal)
CPT/HCPCS: 73502

== ENCOUNTER → 2025-01-05 14:02 | Outpatient (CLI) | payer MEDICARE, SELFPAY ==
--- NOTE | 2025-01-05 | DI.RAD.S_ITS ---
PROCEDURE: XR DEXA AXIAL SKELETON INDICATIONS: OSTEOPOROSIS SCREENING COMPARISON: [facility], , XR DEXA AXIAL SKELETON, 12/27/2022, 10:39. [facility], CR, XR DEXA AXIAL SKELETON, 02/28/2021, 15:48. FINDINGS: Lumbar Spine (L1-L3): Bone mineral density 0.662 g/cm2, T score -3.2. Prior DEXA was performed using dissimilar scan type or analysis method. Left Femoral Neck: Bone mineral density 0.580 g/cm2, T score -2.4. Left Hip: Bone mineral density 0.750 g/cm2, T score -1.6. Prior DEXA was performed using dissimilar scan type or analysis method. Fracture Risk Calculation (when applicable): FRAX score not reported due to T-score less than -2.5. (T score greater or equal to -1.0 to: NORMAL) (T score from -1.1 to -2.4: OSTEOPENIA) (T score less than or equal to -2.5: OSTEOPOROSIS) IMPRESSION: By WHO criteria, patient has osteoporosis. Follow-up guidelines as follows: Osteoporosis: Consider a repeat DEXA and Vertebral Fracture Assessment (VFA) exam in 2 years or sooner if medically necessary, to reassess this patient's status. Osteopenia: Consider a repeat DEXA in 2-3 years to reassess this patient's status, or if there is a new clinical indication. Normal: Consider a repeat DEXA in 5 years or sooner, or if there is a new clinical indication. All treatment decisions require clinical judgment and consideration of individual patient factors, including patient preferences, comorbidities, previous drug use, risk factors not captured in the FRAX model (e.g., frailty, falls, vitamin D deficiency, increased bone turnover, interval significant decline in bone density ) and possible under- or over-estimation of fracture risk by FRAX. In addition, the NOF Guide recommends that FDA-approved medical therapies be considered in postmenopausal women and men age >= 50 years with a: * Hip or vertebral (clinical or morphometric) fracture * T-score of <=-2.5 at the spine or hip * Ten-year fracture probability by FRAX of >= 3% for hip fracture or >=20% for major osteoporotic fracture. Approved by: Jair Oropeza M.D. on 01/05/2025 at 23:14
== END ==
LOC: RAD 14:03
PROVIDERS: PCP Family Medicine; Referring Provider Family Medicine; Visit Provider Family Medicine
DX: M81.0 Age-related osteoporosis without current pathological fracture (principal)
CPT/HCPCS: 77080

== ENCOUNTER 2025-06-03 11:14 | Emergency (ER) | payer MEDICARE, SELFPAY ==
[2025-06-03 11:19] VITALS: BP 176/84; PULSE 71; RESP 14; TEMP 36.7; O2SAT 98; BMI 24.1
--- NOTE | 2025-06-03 13:07 | DI.RAD.S_ITS ---
PROCEDURE: XR ABDOMEN 1V INDICATIONS: evaluate shunt TECHNIQUE: One view of the abdomen acquired. COMPARISON: [facility], CR, XR CHEST 1V, 04/12/2020, 8:17. FINDINGS: Shunt is noted overlying the skull. Tubing courses overlying the hemithorax into the pelvis. Tubing appears intact. No evidence of kink. Prominent colonic stool.. IMPRESSION: Shunt tubing as above. Dictated by: Lizzie Carrillo M.D. on 06/03/2025 at 14:06 Approved by: Lizzie Carrillo M.D. on 06/03/2025 at 14:07
--- NOTE | 2025-06-03 13:07 | DI.CT.S_ITS ---
PROCEDURE: CT HEAD/BRAIN WO CON INDICATIONS: trauma TECHNIQUE: Noncontrast 4.5 mm thick angled axial sections acquired from the foramen magnum to the vertex, with coronal and sagittal reformats. For radiation dose reduction, the following was used: automated exposure control, adjustment of mA and/or kV according to patient size. COMPARISON: [facility], CT, CT HEAD/BRAIN WO CON, 04/27/2025, 17:46. FINDINGS: Image quality: Diagnostic. CSF spaces: Basal cisterns are patent. No extra-axial fluid collections. The ventricles are stable in size compared to prior exam. Ventriculostomy catheter from a right posterior parietal approach terminating in the left ventricular frontal horn, unchanged. Brain: No intracranial bleeds or mass effect. There is cerebral volume loss, with resultant ventricular and sulcal prominence. There are periventricular and deep white matter chronic small vessel ischemic changes. There is intracranial internal carotid artery atherosclerosis. Skull and face: Calvarium and visualized facial bones appear intact, without suspicious lesions. Sinuses: Visualized sinuses and mastoids are clear. IMPRESSION: 1. No acute intracranial process. 2. Moderate atrophy and chronic microvascular ischemic changes. Dictated by: Lizzie Carrillo M.D. on 06/03/2025 at 13:35 Approved by: Lizzie Carrillo M.D. on 06/03/2025 at 13:37
--- NOTE | 2025-06-03 13:46 | PC.NURSE ---
pt took a fall in late april and fractured her R wrist. 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 shes having some intermittent head pain and some confusion. answering questions appropriately.
[2025-06-03 13:51] LABS: Add Manual Diff / Slide Review NO; Hematocrit 38.2 % (36-46); Hemoglobin 12.7 g/dL (12.0-16.0); Lymphocytes Absolute Auto 1400 /uL (1100-4500); Mean Corpuscular HGB Conc 33.3 % (30-36); Mean Corpuscular Hemoglobin 30.2 PG (26-34); Mean Corpuscular Volume 90.6 fL (80-100); Platelet Count 246 X10^3/uL (150-400)
[2025-06-03 14:02] LABS: Blood Urea Nitrogen 14 mg/dL (7-17); Calcium 8.7 mg/dL (8.4-10.2); Carbon Dioxide 27 mmol/L (22-32); Chloride 105 mmol/L (98-107); Estimated Glomerular Filt Rate > 60 mL/min (>60); Glucose 104 mg/dL (70-99); HEMOLYSIS < 15 (0-50); Potassium 3.9 mmol/L (3.4-5.1); Sodium 138 mmol/L (137-145)
[2025-06-03 15:15] LABS: Appearance Urine UA CLEAR; Bilirubin Urine UA NEGATIVE (NEGATIVE); Color Urine UA YELLOW; Glucose Urine UA NEGATIVE (Negative); Ketones Urine UA NEGATIVE (NEGATIVE); Leukocyte Esterase Urine UA 1+ (NEGATIVE); Nitrite Urine UA NEGATIVE (Negative); Occult Blood Urine UA NEGATIVE (Negative); Protein Urine UA NEGATIVE (Negative); Specific Gravity Urine UA 1.015 (1.000-1.035); Urobilinogen Urine UA 0.2 E.U./dL (0.2)
[2025-06-03 15:36] LABS: pH Urine UA 6.5 (4.5-8.0)
[2025-06-03 15:37] LABS: Culture Indicated Urine Specimen Cultured
--- NOTE | 2025-06-03 15:57 | ED_ITS ---
HPI - Neuro Symptoms/Deficit General Chief Complaint: Neuro Symptoms/Deficit Stated Complaint: Fell on Apr 27 confusion Time Seen by Provider: 06/03/25 12:09 Source: patient Mode of arrival: Ambulatory History of Present Illness HPI Narrative: 79-year-old female with history of [employer]OR shunt after was diagnosed with glioblastoma remotely, here with several months of progressive cognitive issues. She reports feeling ?spaced out? and more forgetful than usual. She did have a fall at the end of April is concerned that she may have disrupted the [employer]PER[employer] shunt in some way that is causing her symptoms. Denies any urinary symptoms. No recent illness such as vomiting diarrhea or respiratory infection. No pain. She has not seen her family doctor regarding her concerns On Anticoagulants: No Related Data Home Medications ?Medication ?Instructions ?Recorded ?Confirmed cholecalciferol (vitamin D3) PO 03/23/19 05/20/25 multivitamin,[id number] 1 tab PO DAILY 03/23/19 05/20/25 (Complete Multivitamin tablet) omega-3 fatty acids 1,000 mg 1,000 mg PO DAILY 05/20/25 capsule (Fish Oil Concentrate) atorvastatin 20 mg tablet 20 mg PO BEDTIME 10/11/23 buspirone 5 mg tablet See Rx Instructions PO .COMP DAQUAN PRN 10/11/23 05/20/25 escitalopram oxalate 10 mg tablet 10 mg PO DAILY 10/1105/20/25 famotidine 20 mg tablet 20 mg PO DAILY 10/11/2305/03 lisinopril 10 mg tablet 10 mg PO DAILY 10/11/2305/03 Previous Rx's ?Medication ?Instructions ?Recorded oxycodone-acetaminophen 5 mg-325 1 tab PO Q6H PRN pain #10 tabs 04/27/25 mg tablet (Percocet) Allergies Allergy/AdvReac Type Severity Reaction Status Date / Time lorazepam (From Ativan) AdvReac Agitated Verified 06/03/25 11:19 Review of Systems Review of Systems Narrative: Pertinent ROS obtained and negative except as stated in HPI Hematologic/Lymphatic On Anticoagulants: No Patient History Medical History Strain of left knee Brain tumor Normal pressure hydrocephalus Surgical History S/P [employer] shunt Social History alcohol intake: current substance use type: does not use alcohol intake frequency: 0-2 drinks per day Alcohol type: beer Exam Initial Vital Signs Initial Vital Signs: Vital Signs Temperature 98.1 F 06/03/25 11:19 Pulse Rate 71 06/03/25 11:19 Respiratory Rate 14 06/03/25 11:19 Blood Pressure 176/84 H 06/03/25 11:19 Pulse Oximetry 98 06/03/25 11:19 Oxygen Delivery Method Room Air 06/03/25 11:19 Constitutional: Well appearing, no acute distress Head: NCAT Cardiovascular: RRR, no murmur or rub Pulmonary: CTA bilaterally, no respiratory distress Abdominal: soft, non-tender Extremities: No LE edema Skin: warm and dry, no diaphoresis Neurological: Upper extremity tremor noted. Alert and oriented x3. Face is symmetric normal speech. Extraocular movements intact. PERRL. 5/5 strength upper and lower extremities. No nuchal rigidity. Normal coordination. Normal language. No gross visual deficit Course Orders Ordered: ED Orders 06/03/25 13:07 CT head/brain wo con Stat XR abdomen 1V Stat 06/03/25 13:42 BMP [Basic Metabolic Panel] Stat CBC Auto Diff [Complete Blood Count AUTO DIFF] Stat 06/03/25 15:05 Urinalysis and Microscopic Stat Urine Culture Stat Vital Signs Vital signs: Vital Signs - 8 hr 06/03/25 11:19 Temperature 98.1 F Pulse Rate 71 Respiratory Rate 14 Blood Pressure 176/84 H Pulse Oximetry 98 Oxygen Delivery Method Room Air MDM - Neuro Symptoms/Deficit Lab Data 06/03/25 13:42 06/03/25 13:42 Labs: Lab Results 06/03/25 06/03/25 Range/Units 13:42 15:05 WBC 5.6 (4.5-11.0) X10^3/uL RBC 4.22 (4.0-5.2) X10^6/uL Hgb 12.7 (12.0-16.0) g/dL Hct 38.2 (36-46) % MCV 90.6 (80-100) fL MCH 30.2 (26-34) PG MCHC 33.3 (30-36) % RDW 15.0 H (11.6-14.8) % Plt Count 246 (150-400) X10^3/uL Neut % (Auto) 62.3 (50-75) % Lymph % (Auto) 25.6 (25-40) % [place] % (Auto) 8.3 (3-14) % Eos % (Auto) 3.0 (2-4) % Baso % (Auto) 0.8 (0-2) % Neut # (Auto) 3500 (3675-4556) /uL Lymph # (Auto) 1400 (3885-8792) /uL [place] # (Auto) 500 (0-900) /uL Eos # (Auto) 200 (0-450) /uL Baso # (Auto) 0 (0-100) /uL Sodium 138 (137-145) mmol/L Potassium 3.9 (3.4-5.1) mmol/L Chloride 105 (98-107) mmol/L Carbon Dioxide 27 (22-32) mmol/L BUN 14 (7-17) mg/dL Creatinine 0.88 (0.52-1.04) mg/dL Estimated GFR > 60 (>60) mL/min BUN/Creatinine Ratio 15.9 (6-22) Glucose 104 H (70-99) mg/dL Calcium 8.7 (8.4-10.2) mg/dL Urine Color Yellow Urine Appearance Clear Urine pH 6.5 (4.5-8.0) Ur Specific [place] 1.015 (1.000-1.035) Urine Protein Negative (Negative) Urine Glucose (UA) Negative (Negative) g/dL Urine Ketones Negative (NEGATIVE) Urine Occult Blood Negative (Negative) Urine Nitrate Negative (Negative) Urine Bilirubin Negative (NEGATIVE) Urine Urobilinogen 0.2 (0.2) E.U./dL Ur Leukocyte Esterase 1+ H (NEGATIVE) Urine RBC 0-1/hpf (0-5/HPF) Urine WBC 1-5/hpf (0-5/HPF) Ur Squamous Epith Cells 1-5 /hpf (0-5/HPF) Urine Bacteria Few (2-10) H (None) Ur Culture Indicated? Specimen cultured Vol Urine Centrifuged 10ml (spun) MDM Narrative Medical decision making narrative: This is an 79-year-old female who presents with several months of forgetfulness and feeling ?spaced out. ? She has history of glioblastoma and has a [employer] shunt. She is concerned that she may have a issue with the shunt as did have a fall over a month ago. Pertinent negatives are no headache or vomiting. No recent infectious symptoms no neck stiffness. Here in the emergency department patient has a nonfocal neurologic exam. No nuchal rigidity. Shunt reservoir is soft and compressible. I did note a tremor of left upper extremity. She reports has been told she does not have Parkinson's disease. Exam is benign. CT scan is obtained and does not show any acute intracranial process. No evidence of increased ICP. Shunt series is obtained does not show any kinking of the tubing. CBC and chemistries benign urinalysis no overt infection. No emergent condition identified today. Patient is encouraged to follow up with her family doctor regarding her cognitive decline. Return precautions discussed and provided prior to discharge Discharge Plan Departure Patient Disposition: Home Clinical Impression: Cognitive dysfunction Activity Restrictions/Additional Instructions: Tests today were overall reassuring. No evidence of shunt dysfunction. Head CT did not show any evidence of traumatic injury. Laboratories were stable. I would like you to follow up with your family doctor regarding your symptoms. Return to the emergency department for headache, headache with vomiting, fever, other new symptoms that are concerning to you Prescriptions: No Action famotidine 20 mg tablet 20 mg PO DAILY lisinopril 10 mg tablet 10 mg PO DAILY atorvastatin 20 mg tablet 20 mg PO BEDTIME escitalopram oxalate 10 mg tablet 10 mg PO DAILY buspirone 5 mg tablet See Rx Instructions PO .COMPLEX PRN Rx Instructions: 1-3 tabs orally PRN; Complete Multivitamin tablet 1 tab PO DAILY omega-3 fatty acids [Fish Oil Concentrate] 1,000 mg capsule 1,000 mg PO DAILY cholecalciferol (vitamin D3) PO oxycodone-acetaminophen [Percocet] 5-325 mg tablet 1 tab PO Q6H PRN (Reason: pain) Qty: 10 0RF Referrals: Deann Cueva PA-C [Primary Care Provider, Medical] Stand Alone Forms: Patient Portal/API
[2025-06-03 16:15] VITALS: BP 137/74; PULSE 78; RESP 16; O2SAT 97
== END 2025-06-03 16:00 | disposition home or self-care (01) ==
PROVIDERS: Emergency Provider Student in an Organized Health Care Education/Training Program; PCP Physician Assistant
DX: R29.818 Other symptoms and signs involving the nervous system (principal); Z98.2 Presence of cerebrospinal fluid drainage device
CPT/HCPCS: 36415; 70450; 74018; 80048; 81001; 85025; 87086; 99283; 99284